=== PATIENT | female | born 1975 | race Hispanic/Latino ===

== ENCOUNTER 2025-08-08 13:22 | Inpatient (IN) | payer OTHER ==
[~2025-08-08] VITALS: Ht 167.6 cm; Wt 72.6 kg
[2025-08-08 14:54] VITALS: TEMP 98.2
[2025-08-08 15:36] LABS: BASOPHILS % 0.8 % (0.0-1.0); EOSINOPHILS % 2.1 % (0.0-6.0); LYMPHOCYTES % 33.1 % (18.0-39.1); MONOCYTES % 6.1 % (4.4-11.3); NEUTROPHILS % 57.6 % (38.7-80.0); RED CELL DISTRIBUTION WIDTH 13.2 % (11.7-14.4)
[2025-08-08 15:41] LABS: INR 0.93
[2025-08-08 15:50] LABS: EST GLOMERULAR FILTRATION RATE 69.0 ML/MIN (>=60)
[2025-08-08] MEDS: SODIUM CHLORIDE 0.9% 1000ML 1,000 ML IV STA (16:16)
[2025-08-08] MEDS ORDERED: CLOPIDOGREL BISULFATE 300 MG TAB-DO NOT STOCK PO ONE (16:45)
[2025-08-08] MEDS ORDERED: NITROGLYCERIN 0.4 MG SUBL SL PRN (17:00)
[2025-08-08] MEDS: ASPIRIN 81 MG CHEW TAB PO ONE (17:55)
[2025-08-08] MEDS: SODIUM CHLORIDE 0.9% 1000ML 1,000 ML IV SCH (17:56)
[2025-08-08] MEDS: CLOPIDOGREL BISULFATE 75 MG TAB PO ONE (17:56)
[2025-08-08 18:00] VITALS: PULSE 71; RESP 14
[2025-08-08 20:00] VITALS: BP 102/77; PULSE 72; RESP 18; TEMP 97.7; O2SAT 98
[2025-08-08 21:00] VITALS: BP 102/77; PULSE 72; RESP 18; TEMP 97.7; O2SAT 98
[2025-08-08] MEDS ORDERED: LEVOTHYROXINE150 MCG PO (21:56)
[2025-08-08] MEDS ORDERED: EZETIMIBE10 MG PO (21:56)
[2025-08-08] MEDS ORDERED: ASPIRIN81 MG PO (21:56)
[2025-08-08] MEDS ORDERED: SYNJARDY XR 121 EACH PO (21:56)
[2025-08-08] MEDS ORDERED: CLOPIDOGREL75 MG PO (21:56)
[2025-08-08] MEDS ORDERED: RANOLAZINE ER1000 MG PO (21:56)
[2025-08-08] MEDS ORDERED: NITROGLYCERIN0.4 MG SL (21:56)
[2025-08-08] MEDS ORDERED: MIDODRINE HCL5 MG PO (21:56)
[2025-08-08] MEDS ORDERED: OZEMPIC1 MG/0.71 SQ (21:56)
[2025-08-08] MEDS ORDERED: ROSUVASTATIN CA40 MG PO (21:56)
[2025-08-08] MEDS ORDERED: NEURONTIN300 MG PO (21:56)
[2025-08-08] MEDS ORDERED: SERTRALINE HCL100 MG PO (21:56)
[2025-08-08] MEDS: ONDANSETRON HCL INJ 2MG/ML 2ML 2 MG/ML VIAL IV PRN (22:02)
[2025-08-09] VITALS (7 sets, daily range): BP systolic 102–146; BP diastolic 70–94; PULSE 72–82; RESP 14–18; TEMP 97.4–98; O2SAT 98–100
[2025-08-09 05:58] LABS: BASOPHILS % 0.5 % (0.0-1.0); EOSINOPHILS % 2.0 % (0.0-6.0); LYMPHOCYTES % 31.8 % (18.0-39.1); MONOCYTES % 5.6 % (4.4-11.3); NEUTROPHILS % 59.8 % (38.7-80.0); RED CELL DISTRIBUTION WIDTH 13.4 % (11.7-14.4)
[2025-08-09 06:29] LABS: CHOL/HDL RATIO 2.3 (3.0-3.6); EST GLOMERULAR FILTRATION RATE 63.0 ML/MIN (>=60)
[2025-08-09 06:32] LABS: LDL CHOLESTEROL 4.0 MG/DL (60-130)
[2025-08-09] MEDS: CLOPIDOGREL BISULFATE 75 MG TAB PO SCH (08:31)
[2025-08-09] MEDS: ASPIRIN 81 MG ENTERIC COATED PO SCH (08:31)
[2025-08-09] MEDS: ACETAMINOPHEN/CODEINE 300MG - 30MG TAB PO PRN (09:12)
[2025-08-09] MEDS: MIDODRINE HCL 5 MG TABLET PO SCH (12:00)
[2025-08-09] MEDS ORDERED: REGADENOSON 0.4 MG/5 ML SYR IV ONE (14:08)
[2025-08-09] MEDS ORDERED: DEXTROSE 50% SYRINGE 50 ML IV PRN (17:00)
[2025-08-09] MEDS: RANOLAZINE 500 MG TABSR PO SCH (18:05)
[2025-08-09] MEDS: METOPROLOL TARTRATE 25 MG TAB PO SCH (18:06)
[2025-08-09] MEDS: INSULIN LISPRO 100 UNIT/1 ML 3ML VIAL SQ SCH (21:00)
[2025-08-09] MEDS ORDERED: NON-FORMULARY MEDICATION (Rosuvastatin Calcium 1 TAB) PO SCH (21:00)
[2025-08-09] MEDS: SERTRALINE HCL 100 MG TAB PO SCH (21:10)
[2025-08-09] MEDS: GABAPENTIN 300 MG CAP PO SCH (21:10)
[2025-08-09] MEDS: CRESTOR 10MG PO SCH (21:10)
[2025-08-10] VITALS (9 sets, daily range): BP systolic 95–174; BP diastolic 64–98; PULSE 63–71; RESP 17–20; TEMP 97.6–98.1; O2SAT 97–100
[2025-08-10] MEDS: LEVOTHYROXINE SODIUM 75 MCG TAB PO SCH (05:17)
[2025-08-10] MEDS: ASPIRIN 81 MG CHEW TAB PO SCH (08:55)
[2025-08-10] MEDS: EZETIMIBE 10 MG TAB PO SCH (08:56)
[2025-08-10] MEDS ORDERED: CLOPIDOGREL BISULFATE 75 MG TAB PO SCH (09:00)
[2025-08-10] MEDS: METOCLOPRAMIDE HCL 10 MG/2ML VIAL IV SCH ×2 (14:24→20:18)
[2025-08-11 04:41] VITALS: BP 117/82; PULSE 66; RESP 17; TEMP 97.9; O2SAT 99
[2025-08-11 07:22] VITALS: BP 127/88; PULSE 66; RESP 20; TEMP 97.6; O2SAT 100
[2025-08-11 11:01] VITALS: BP 127/88; PULSE 72; RESP 20; TEMP 97.6; O2SAT 100
[2025-08-11 12:30] VITALS: BP 110/74
== END 2025-08-11 17:50 | disposition home or self-care (01) | DRG 69 ==
LOC: ER 15:30 → ERHOLD 16:54 → MED/SURG 22:37
PROVIDERS: ADMIT Internal Medicine; ATTEND Internal Medicine
DX: G45.9 Transient cerebral ischemic attack, unspecified (principal); Q24.5 Malformation of coronary vessels; I67.82 Cerebral ischemia; G51.0 Bell's palsy; E11.65 Type 2 diabetes mellitus with hyperglycemia; R07.89 Other chest pain; I95.9 Hypotension, unspecified; I11.9 Hypertensive heart disease without heart failure; G57.92 Unspecified mononeuropathy of left lower limb; E78.00 Pure hypercholesterolemia, unspecified; I25.10 Atherosclerotic heart disease of native coronary artery without angina pectoris; Z95.5 Presence of coronary angioplasty implant and graft; E11.69 Type 2 diabetes mellitus with other specified complication; Z79.4 Long term (current) use of insulin; F45.8 Other somatoform disorders; Z87.891 Personal history of nicotine dependence; Z79.899 Other long term (current) drug therapy; Z79.02 Long term (current) use of antithrombotics/antiplatelets; Z79.82 Long term (current) use of aspirin
CPT/HCPCS: 36415; 70450; 70551; 71045; 78452; 80053; 80061; 82550; 82948; 83735; 83880; 84484; 85025; 85610; 85730; 93005; 93017; 93306; 93880; 99284; A9502; J2405; J2765; J7030